=== PATIENT | male | born 1985 | race Caucasian/White ===

== ENCOUNTER 2020-12-02 22:10 | Emergency (ER) | payer BC, OTHER ==
[~2020-12-02] VITALS: Ht 180 cm; Wt 113.8 kg
[2020-12-02 22:52] LABS: BASOPHILS # (AUTO) 0.1 10^3/uL (0.0-0.1); BASOPHILS % (AUTO) 1 % (0-10); EOSINOPHILS # (AUTO) 0.2 10^3/uL (0.0-0.3); EOSINOPHILS % (AUTO) 3 % (0-10); HEMATOCRIT 47 % (40-54); HEMOGLOBIN 16.3 g/dL (13.3-17.7); LYMPHOCYTES # (AUTO) 3.3 10^3/uL (1.0-4.0); LYMPHOCYTES % (AUTO) 36 % (12-44); MEAN CORPUSCULAR HEMOGLOBIN 30 pg (25-34); MEAN CORPUSCULAR HGB CONC 35 g/dL (32-36); MEAN CORPUSCULAR VOLUME 86 fL (80-99); MEAN PLATELET VOLUME 9.9 fL (9.0-12.2); MONOCYTES # (AUTO) 0.8 10^3/uL (0.0-1.0); MONOCYTES % (AUTO) 9 % (0-12); NEUTROPHILS # (AUTO) 4.8 10^3/uL (1.8-7.8); NEUTROPHILS % (AUTO) 52 % (42-75); PLATELET COUNT 202 10^3/uL (130-400); WHITE BLOOD COUNT 9.2 10^3/uL (4.3-11.0)
[2020-12-02 22:58] LABS: INR 0.9 (0.8-1.4); PROTHROMBIN TIME PATIENT 12.8 SEC (12.2-14.7)
[2020-12-02 22:59] LABS: ALBUMIN 4.4 GM/DL (3.2-4.5); POTASSIUM 3.9 MMOL/L (3.6-5.0)
[2020-12-02 23:00] LABS: CALCIUM 9.2 MG/DL (8.5-10.1)
[2020-12-02 23:01] LABS: TOTAL PROTEIN 7.5 GM/DL (6.4-8.2)
[2020-12-02 23:03] LABS: BILIRUBIN,TOTAL 0.6 MG/DL (0.1-1.0)
[2020-12-02 23:05] LABS: CREATININE SERUM 1.12 MG/DL (0.60-1.30)
[2020-12-02 23:08] LABS: MAGNESIUM 2.1 MG/DL (1.6-2.4)
[2020-12-02 23:17] LABS: CREATINE KINASE MB 1.2 NG/ML (<6.6)
--- NOTE | 2020-12-02 23:38 | Diagnostic Imaging Report ---
INDICATION: Chest pain Frontal chest obtained at 1116 p.m. Heart and mediastinal silhouette are normal in appearance. The lungs are clear. There is no pneumothorax or pleural fluid collection. IMPRESSION: Negative chest. Dictated by: Dictated on workstation # [id number]
[2020-12-03] MEDS ORDERED: HYDR50CA3 PO (00:01)
--- NOTE | 2020-12-03 00:01 | ED Cardiac General ---
History of Present Illness General Chief Complaint: Chest Pain Stated Complaint: CHEST PAIN X1WEEK, LEFT ARM PAIN Nursing Triage Note: PT AMBULATES TO ROOM #7 W/CO INTERMITTENT EPISODES OF CHEST DISCOMFORT AND DIZINESS. PT STATES, "I GET PALE AND FEEL LIKE I'M GOING TO PASS OUT." PT REPORTS EPISODES BEGAN 1.5WK AGO. REPORTS UPON ONSET OF CHEST DISCOMFORT PT WAS SEEN AT [facility] AND PRESCRIBED PROPRANALOL. PT STATES, "I SELF DIAGNOSED MYSELF WITH PANIC ATTACKS." PT REPORTS INCREASED EPISODES OF DIZZINESS AND CHEST DISCOMFORT THROUGHOUT THIS DAY. PT STATES, "IT FEELS LIKE SOMEONE IS PUSHING ON MY CHEST." PT RATES CHEST DISCOMFORT 7/10 DURING TRIAGE. History of Present Illness NTG SL SERVICE SECRETARY: No ASA po SERVICE SECRETARY: Yes (325MG ASA) Allergies and Home Medications Home Medications Hydroxyzine Pamoate 50 Mg Capsule, 50 MG PO Q6H PRN for ANXIETY Prescribed by: PRAVEEN COHEN on 12/03/20 0001 Past Tffwnfu-Owczey-Wdeute Hx Patient Social History Tobacco Use?: No Substance use?: Yes Substance type: Marijuana Alcohol Use?: No Pt feels they are or have been: No Immunizations Up To Date First/Initial COVID19 Vaccinat: NONE Second COVID19 Vaccination Shaq: NONE Physical Exam Vital Signs Vital Signs - First Documented Capillary Refill : Less Than 3 Seconds Height, Weight, BMI Height: '" Weight: lbs. oz. kg; 35.00 BMI Method: Progress/Results/Core Measures Results/Orders Lab Results Laboratory Tests Test 12/02/20 22:35 12/02/20 22:40 12/02/20 22:45 Range/Units White Blood Count 9.2 4.3-11.0 10^3/uL Red Blood Count 5.44 4.30-5.52 10^6/uL Hemoglobin 16.3 13.3-17.7 g/dL Hematocrit 47 40-54 % Mean Corpuscular Volume 86 80-99 fL Mean Corpuscular Hemoglobin 30 25-34 pg Mean Corpuscular Hemoglobin Concent 35 32-36 g/dL Red Cell Distribution Width 11.8 10.0-14.5 % Platelet Count 202 130-400 10^3/uL Mean Platelet Volume 9.9 9.0-12.2 fL Immature Granulocyte % (Auto) 0 % Neutrophils (%) (Auto) 52 42-75 % Lymphocytes (%) (Auto) 36 12-44 % Monocytes (%) (Auto) 9 0-12 % Eosinophils (%) (Auto) 3 0-10 % Basophils (%) (Auto) 1 0-10 % Neutrophils # (Auto) 4.8 1.8-7.8 10^3/uL Lymphocytes # (Auto) 3.3 1.0-4.0 10^3/uL Monocytes # (Auto) 0.8 0.0-1.0 10^3/uL Eosinophils # (Auto) 0.2 0.0-0.3 10^3/uL Basophils # (Auto) 0.1 0.0-0.1 10^3/uL Immature Granulocyte # (Auto) 0.0 0.0-0.1 10^3/uL Prothrombin Time 12.8 12.2-14.7 SEC INR Comment 0.9 0.8-1.4 Activated Partial Thromboplast Time 36 H 24-35 SEC Sodium Level 143 135-145 MMOL/L Potassium Level 3.9 3.6-5.0 MMOL/L Chloride Level 106 98-107 MMOL/L Carbon Dioxide Level 24 21-32 MMOL/L Anion Gap 13 5-14 MMOL/L Blood Urea Nitrogen 14 7-18 MG/DL Creatinine 1.12 0.60-1.30 MG/DL Estimat Glomerular Filtration Rate 75 BUN/Creatinine Ratio 13 Glucose Level 130 H 70-105 MG/DL Calcium Level 9.2 8.5-10.1 MG/DL Corrected Calcium 8.9 8.5-10.1 MG/DL Magnesium Level 2.1 1.6-2.4 MG/DL Total Bilirubin 0.6 0.1-1.0 MG/DL Aspartate Amino Transf (AST/SGOT) 23 5-34 U/L Alanine Aminotransferase (ALT/SGPT) 32 0-55 U/L Alkaline Phosphatase 56 40-136 U/L Total Creatine Kinase 120 30-200 U/L Creatine Kinase MB 1.2 <6.6 NG/ML Myoglobin 35.7 10.0-92.0 NG/ML Troponin I < 0.028 <0.028 NG/ML B-Type Natriuretic Peptide 18.9 <100.0 PG/ML Total Protein 7.5 6.4-8.2 GM/DL Albumin 4.4 3.2-4.5 GM/DL Amylase Level 51 25-125 U/L Lipase 27 8-78 U/L TSH Brandon Testing 3.94 0.35-4.94 UIU/ML SARS-CoV-2 RNA (RT-PCR) Not Detected Not Detecte My Orders Orders - PRAVEEN COHEN Gabriel DO Cbc With Automated Diff (12/02/20 22:39) Magnesium (12/02/20 22:39) Chest 1 View, Ap/Pa Only (12/02/20 22:39) Ekg Tracing (12/02/20 22:39) Comprehensive Metabolic Panel (12/02/20 22:39) Myoglobin Serum (12/02/20 22:39) Protime With Inr (12/02/20 22:39) Partial Thromboplastin Time (12/02/20 22:39) O2 (12/02/20 22:39) Monitor-Rhythm Ecg Trace Only (12/02/20 22:39) Ed Iv/Invasive Line Start (12/02/20 22:39) Creatine Kinase (12/02/20 22:39) Creatine Kinase Mb (12/02/20 22:39) Lipase (12/02/20 22:39) Amylase (12/02/20 22:39) BNP (12/02/20 22:39) Troponin I (12/02/20 22:39) Covid 19 Inhouse Test (12/02/20 22:51) Drug Screen Stat (Urine) (12/02/20 22:52) Thyroid Analyzer (12/02/20 22:52) Ua Culture If Indicated (12/02/20 22:52) Orthostatic Vital Signs (Adult (12/02/20 23:56) Vital Signs/I&O 12/02/20 12/02/20 22:26 22:26 Temp 36.4 Pulse 63 Resp 17 B/P (MAP) 116/76 (89) Pulse Ox 98 O2 Delivery Room Air Room Air Blood Pressure Mean: 89 Departure Impression Primary Impression: Palpitations Additional Impressions: Chest pain Anxiety Disposition: 01 HOME, SELF-CARE Condition: Stable Departure-Patient Inst. Decision time for Depature: 23:50 Referrals: [facility] (PCP/Family) Primary Care Physician Patient Instructions: Chest Pain (DC), Palpitations (DC), Anxiety, Adult ED Add. Discharge Instructions: HOME, REST CONTINUE PROPRANOLOL TAKE A COATED ASPIRIN DAILY FOLLOW UP WITH [facility] NEXT WEEK CALL ON SATURDAY TO ARRANGE FOR HOLTER MONITOR RETURN TO ER IF SYMPTOMS WORSEN All discharge instructions reviewed with patient and/or family. Voiced understanding. Scripts Hydroxyzine Pamoate (Hydroxyzine Pamoate) 50 Mg Capsule 50 MG PO Q6H PRN for ANXIETY, #15 CAP Prov: PRAVEEN COHEN DO 12/03/20 PRAVEEN COHEN DO Dec 03, 2020 00:01
[2020-12-03 00:05] VITALS: BP_SYST 100; BP_SYST 104; BP_SYST 109; BP_DIAS 58; BP_DIAS 68; BP_DIAS 70
[2020-12-03 00:15] VITALS: BP 109/68
--- OUTSIDE RECORDS SUMMARY | 2020-12-05 04:01 | XMS REPORT ---
Author Author [facility] [place] Address Unknown Phone Unavailable Care Team Providers Care Notcher Name Role Phone Migration, Doctor Unavailable Unavailable PROBLEMS Type Condition ICD9-CM Code [id number] Code Onset Dates Condition S tatus W/U Status Risk SNOMED Code Notes Problem Routine general medical examination at health care facilit y V70.0 Active 028321396 ROUTINE GENERAL MEDICAL EXAMINATION AT A HEALTH CARE FACILITY Problem Cough 786.2 Active 87343022 COUGH ALLERGIES No Information ENCOUNTERS from 1986 to 2020-10-17 Encounter Location Date Provider Diagnosis [facility] [address] [facility] [id number] [place] [address] Jul, Doctor Migration IMMUNIZATIONS No Information SOCIAL HISTORY Sex Assigned At : Social History Observation Description Sex Assigned At Unknown REASON FOR REFERRAL No Information VITAL SIGNS No information MEDICATIONS Medication SIG (Take, Route, Frequency, Duration) Notes Start Da te End Date Status Azithromycin 250 mg 2 Tablet by Oral route on da y 1 then take 1 daily for 4 days [facility] Sep, Active Codeine-Guaifenesin 10-100 mg/5 mL take 10 milliliters by oral route every 4 hours as needed [facility] Sep, Active PROCEDURES No Information RESULTS No Results REASON FOR VISIT [facility] [place] Goals Section No Information Health Concerns No Information MEDICAL EQUIPMENT No Information MENTAL STATUS No Information FUNCTIONAL STATUS No Information ASSESSMENTS No Information PLAN OF TREATMENT No Information Insurance Providers Payer Name Payer Address Payer Phone Insured Name Patient Relati onship to Insured Coverage Start Date Coverage End Date [place] [address] [place] [address] Elvis Mobley rlon self
== END 2020-12-03 00:15 | disposition home or self-care (01) ==
LOC: ER 22:18
DX: R00.2 Palpitations (principal); R07.9 Chest pain, unspecified; F41.9 Anxiety disorder, unspecified; Z20.822 Contact with and (suspected) exposure to COVID-19
CPT/HCPCS: 36415; 71045; 80053; 82150; 82550; 82553; 83690; 83735; 83874; 83880; 84443; 84484; 85025; 85610; 85730; 87636; 93005; 93041

== ENCOUNTER → 2021-03-20 | Outpatient (CLI) | payer BC ==
[~2021-03-20] MED LIST: HYDR50CA3 PO
== END ==
LOC: CARD 15:00
PROVIDERS: ATTEND Internal Medicine Cardiovascular Disease
DX: I51.7 Cardiomegaly (principal)
CPT/HCPCS: 93306

== ENCOUNTER → 2021-03-30 | Outpatient (CLI) | payer BC ==
[~2021-03-30] MED LIST changes: +CATHETER FLUSH 10 ML SYR IV PRN
[2021-03-30 12:44] VITALS: BP 105/72
--- NOTE | 2021-03-31 08:46 | NUCLEAR STRESS TEST ---
TREADMILL NUCLEAR STRESS TEST Date of procedure: 03/30/2021. Primary care provider: [facility]. Admitting physician: Chema Torres Jr., MD. INDICATION: Abnormal electrocardiogram. BASELINE ELECTROCARDIOGRAM: Sinus bradycardia at 50 bpm with sinus arrhythmia. STRESS TEST PROCEDURE: The patient was exercised for a total of 12 minutes and 1 second of the standard Tom protocol achieving a maximum MET level of 12.3. The resting heart rate was 50 bpm and the peak heart rate was 171 bpm, which represents 92% of the maximum predicted heart rate. The resting blood pressure was 114/76 mmHg and the peak blood pressure was 179/97 mmHg. This represents a normal heart rate and a normal blood pressure response to exercise. The test was stopped due to fatigue. There was no chest discomfort during the test. There were no arrhythmias during the test. There were no significant stress induced electrocardiogram changes. The patient exhibited excellent exercise capacity for age. NUCLEAR PROCEDURE: The patient was administered 11 mCi of intravenous technetium 99m Tetrofosmin at rest for the rest images. The patient was subsequently administered 29.3 mCi of intravenous technetium 99 M Tetrofosmin at peak stress for the stress images. Following an appropriate wait after each injection, imaging was obtained. The images were subsequently processed and reformatted in the usual views. Gated imaging was obtained. The image quality was adequate with a mild degree of gastrointestinal attenuation artifact. CT attenuation correction was used as a adjunct to standard imaging. Both the corrected and uncorrected images were reviewed for interpretation. NUCLEAR RESULTS: There was normal myocardial perfusion in all segments without evidence of infarction or ischemia. There was normal left ventricular chamber size with an end-diastolic volume of 97 mL and an end-systolic volume of 45 mL. There was no evidence of transient ischemic dilatation. The TID ratio was 1.06. There was normal wall motion in all segments with a calculated ejection fraction of 54%. IMPRESSION: 1. Normal heart rate and blood pressure response to exercise. 2. There was no chest discomfort, arrhythmias, or electrocardiogram changes during the test. 3. The patient exhibited excellent exercise capacity for age at 12 minutes and 1 second of the Tom protocol. 4. There was normal myocardial perfusion in all segments without evidence of infarction or ischemia. 5. There was normal wall motion in all segments with a calculated ejection fraction of 54%. Certain portions of this document may have been dictated utilizing voice recognition technology. Inherent to this technology, typographical and grammatical errors may exist. As much as I am diligent to identify and correct these mistakes, some errors may remain in the document. CHEMA TORRES JR, MD Mar 31, 2021 08:46
== END ==
LOC: CARD 11:30
PROVIDERS: ATTEND Internal Medicine Cardiovascular Disease
DX: R94.31 Abnormal electrocardiogram [ECG] [EKG] (principal)
CPT/HCPCS: 78452; 93017

== ENCOUNTER 2022-03-14 05:36 | Outpatient (CLI) | payer BC ==
[~2022-03-14] VITALS: Ht 180.3 cm; Wt 113.0 kg
[~2022-03-14 05:36] MED LIST changes: -CATHETER FLUSH 10 ML SYR IV PRN
[2022-03-14] MEDS ORDERED: HYDR-700 PO (10:31)
[2022-03-14] MEDS ORDERED: CITA20TA9 PO (10:31)
[2022-03-14] MEDS ORDERED: EZET10TA49 PO (10:31)
[2022-03-14] MEDS ORDERED: OMEP20CA18 PO (10:31)
== END 2022-03-14 10:34 | disposition home or self-care (01) ==
LOC: PREOP 05:36
PROVIDERS: ATTEND Surgery
DX: Z01.818 Encounter for other preprocedural examination (principal)

== ENCOUNTER 2022-03-21 10:25 | Day surgery (SDC) | payer BC ==
[~2022-03-21] VITALS: Ht 180.3 cm; Wt 113.0 kg
[~2022-03-21 10:25] MED LIST changes: +CITA20TA9 PO; +EZET10TA49 PO; +HYDR-700 PO; +OMEP20CA18 PO
--- NOTE | 2022-03-21 10:36 | Progress Note-Pre Operative ---
Pre-Operative Progress Note Date of Available H&P: Mar 21, 2022 Date H&P Reviewed: Mar 21, 2022 Time H&P Reviewed: 10:30 History & Physical: No changes noted Pre-Operative Diagnosis: GERD, dysphagia SAMINA GARCIA MD Mar 21, 2022 10:36
[2022-03-21] MEDS ORDERED: LACTATED RINGERS 1,000 ML IV STA (10:37)
[2022-03-21] MEDS ORDERED: PANT40TA2 PO (10:37)
--- NOTE | 2022-03-21 10:38 | Discharge Inst-Surgical ---
D/C Lap Instructions-KIDO New, Converted, or Re-Newed RX: RX on Chart Follow Up Activity as tolerated High Fiber Diet 25g or more per day Avoid Alcohol, Caffeine, Spicy [place] and Acid foods. Drink 64 fluid oz or more of fluids per day. Symptoms to Report: Fever over 101 degree F, Nausea/Vomiting If any problems/questions: Contact your physician or go to Emergency Room SAMINA GARCIA MD Mar 21, 2022 10:38
[2022-03-21] MEDS ORDERED: LIDOCAINE JELLY 2% 6 ML SYRINGE TOP ONE (10:45)
[2022-03-21] MEDS ORDERED: ONDANSETRON 4 MG/2 ML (SDV) Z0FRAN IVP PRN (10:45)
[2022-03-21] MEDS ORDERED: ONDANSETRON 4 MG (ZOFRAN) ORAL DISSOLVE TAB PO PRN (10:45)
[2022-03-21] MEDS ORDERED: HURRICAINE EXT TUBE (BENZOCAINE) XX PRN (10:45)
[2022-03-21 10:50] VITALS: BP 105/58
[2022-03-21] MEDS ORDERED: MIDAZOLAM 2 MG/2 ML (VERSED) VIAL ONE (11:22)
[2022-03-21] MEDS ORDERED: proPOfol 200 MG/20 ML (DIPRIVAN) VIAL IV ONE (11:22)
[2022-03-21 11:57] VITALS: BP 117/76
[2022-03-21 12:00] VITALS: BP 117/76
--- NOTE | 2022-03-21 12:04 | Progress Note-Post Operative ---
Post-Operative Progess Note Surgeon (s)/Multiple Games Dealer (s) Surgeon SAMINA GARCIA MD Multiple Games Dealer: none Pre-Operative Diagnosis GERD, dysphagia Post-Operative Diagnosis reflux esophagitis(grade B-C), small-mod HH(2.5cm), mild gastritis, mild duodenitis. Procedure & Operative Findings Date of Procedure 03/21/22 Procedure Performed/Findings EGD with bx and balloon dilatation. Anesthesia Type mac Estimated Blood Loss Estimated blood loss (mL): minimal Specimens/Packing Specimens Removed ge jxn, antrum, duo SAMINA GARCIA MD Mar 21, 2022 12:04
[2022-03-21 12:30] VITALS: BP 97/58
[2022-03-21 12:49] VITALS: BP 97/58
--- NOTE | 2022-03-21 14:23 | Anesthesia-General Post-Op ---
MAC Patient Condition Mental Status/LOC: Same as Preop Cardiovascular: Satisfactory Nausea/Vomiting: Absent Respiratory: Satisfactory Pain: Controlled Complications: Absent Post Op Complications Complications None Follow Up Care/Instructions Patient Instructions None needed. Anesthesiology Discharge Order Discharge Order Patient is doing well, no complaints, stable vital signs, no apparent adverse anesthesia problems. No complications reported per nursing. IDA HANCOCK CRNA Mar 21, 2022 14:23
--- NOTE | 2022-03-21 22:43 | OPERATIVE REPORT ---
DATE OF SERVICE: 03/21/2022 ATTENDING PRIMARY CARE PHYSICIAN: [facility]. PREOPERATIVE DIAGNOSES: Gastroesophageal reflux disease and dysphagia. POSTOPERATIVE DIAGNOSES: Reflux esophagitis, [place] between grade B and C with a mild distal esophageal stricture, small to moderate size hiatal hernia approximately 2.5 cm in size, mild gastritis, mild duodenitis. PROCEDURES: EGD with biopsy and balloon dilatation. SURGEON: Samina Garcia MD ANESTHESIA: Monitored anesthesia care. ESTIMATED BLOOD LOSS: Minimal. FINDINGS: Reflux esophagitis, [place] between grade B and C with a mild distal esophageal stricture, small to moderate size hiatal hernia approximately 2.5 cm in size, mild gastritis, mild duodenitis. DISPOSITION: The patient tolerated the procedure well. INDICATIONS: The patient is a 37-year-old male, who has had issues with epigastric pain and pressure sensation sometimes after taking in a food bolus. He initially thought that this was cardiac related and underwent a cardiac workup, which was normal. He also reports that he has had issues with panic attacks in the past. He reports that he started to take Tums for suspected heartburn and is currently on omeprazole 20 mg twice a day. He does report again on occasion that he will take in a food bolus and then will feel epigastric fullness sensation as well as pressure. No hematemesis, no coffee-ground emesis. DESCRIPTION OF PROCEDURE: The patient was brought to the endoscopy suite and laid in the left lateral decubitus position. After adequate IV pain and sedative medications and monitored anesthesia care, the mouthpiece was applied. Endoscope was placed in the mouth to visualize the pharynx and hypopharyngeal region. Vocal cords, epiglottis and vallecula identified and appeared to be normal. Endoscope was then gently intubated into the esophageal opening and esophagus was insufflated. The endoscope was then advanced through the first, second and third portion of the esophagus at the level of the GE junction, a reflux esophagitis, [place] between grade B and C identified with a mild distal esophageal stricture. A biopsy was taken with forceps with visualization of good hemostasis. The endoscope was then advanced through the GE junction. Endoscope retroflexed visualizing a small to moderate size hiatal hernia approximately 2.5 cm in size. A mild gastritis was noted. No ulcerations, polyps or any neoplasms. The endoscope was then advanced through the pylorus into the first and second portions of the duodenum with a mild duodenitis was also identified. Biopsy was taken of the duodenum as well. The balloon was then placed in the stomach and pulled back to the area of the stricture. We then proceeded in a graded stepwise fashion from 2, 4 then eventually 6 atmospheres of pressure with moderate resistance and 20 mm in the luminal diameter and left this in place for approximately 60 seconds. The balloon was then desufflated and removed with visualization of good hemostasis as well as no mucosal tears. The endoscope was then slowly withdrawn while taking a second look and suctioning of residual air with no additional findings. The patient tolerated the procedure well. We will recommend the necessary lifestyle and dietary accommodations including small and more frequent meals, avoidance of eating at night as well as head elevation while lying supine. We will also start him on Protonix 40 mg daily and also instruct him to return for repeat dilatation if he does feel some recurrent dysphagia. Job ID: [id number] DocumentID: [id number] Dictated Date: 03/21/2022 11:59:53 Skin Care Consultant Date: 03/21/2022 22:41:00 Dictated By: SAMINA GARCIA MD
== END 2022-03-21 12:50 | disposition home or self-care (01) ==
LOC: ENDO 10:25
PROVIDERS: ATTEND Surgery
DX: K21.00 Gastro-esophageal reflux disease with esophagitis, without bleeding (principal); K44.9 Diaphragmatic hernia without obstruction or gangrene; K22.2 Esophageal obstruction; K29.80 Duodenitis without bleeding; K29.70 Gastritis, unspecified, without bleeding; Z79.899 Other long term (current) drug therapy; Z28.310 Unvaccinated for COVID-19